=== PATIENT | female | born 1965 | race Caucasian/White ===

== ENCOUNTER 2022-04-07 01:46 | Emergency (ER) | payer OTHER, MEDICAID ==
[~2022-04-07] VITALS: Ht 162.6 cm; Wt 58.2 kg
[~2022-04-07 01:46] MED LIST: GLYB5TAB4 PO; METF500T PO
[2022-04-07] MEDS ORDERED: HYDROCODONE/ACETAMINOPHEN 5/325MG TABLET PO STA (03:52)
[2022-04-07 04:08] LABS: BASOPHILS % 0.7 % (0.0-2.0); HEMATOCRIT. 42.9 % (36.0-48.0); HEMOGLOBIN. 14.3 g/dL (12.0-16.0); LYMPHOCYTES % 23.7 % (20.0-50.0); MEAN CORPUSCULAR VOLUME 86.6 fL (81.0-99.0); MEAN PLATELET VOLUME 9.1 fl (7.4-10.4); NEUTROPHILS % 66.6 % (40.0-76.0); PLATELET 301 x1000/uL (130-400); RED BLOOD CELL COUNT 4.95 mill/uL (4.2-5.4); RED CELL DISTRIBUTION WIDTH 13.3 % (11.6-14.6)
[2022-04-07 04:14] LABS: CHLORIDE 103 mEq/L (98-107)
[2022-04-07] MEDS ORDERED: SODIUM CHLORIDE 0.9% 1,000 ML IV ONE (05:00)
[2022-04-07] MEDS ORDERED: ONDANSETRON HCL 4MG/2ML INJ IV NR ×2 (05:36→11:30)
[2022-04-07] MEDS ORDERED: IOHEXOL-300 100 ML BOTTLE ONE (05:52)
[2022-04-07 10:33] VITALS: BP 116/68
[2022-04-07] MEDS ORDERED: ONDANSETRON HCL 4MG/2ML INJ IV STA (10:55)
[2022-04-07] MEDS ORDERED: MORPHINE SULFATE 4 MG/ML CPJ (NOT FOR IM USE) IV STA (10:55)
[2022-04-07] MEDS ORDERED: MORPHINE SULFATE 4 MG/ML CPJ (NOT FOR IM USE) IV NR (11:30)
== END 2022-04-07 11:21 | disposition short-term general hospital (02) ==
LOC: ER 01:46
DX: K85.90 Acute pancreatitis without necrosis or infection, unspecified (principal); R10.9 Unspecified abdominal pain; K21.9 Gastro-esophageal reflux disease without esophagitis; E11.9 Type 2 diabetes mellitus without complications; F17.210 Nicotine dependence, cigarettes, uncomplicated; Z88.2 Allergy status to sulfonamides; Z20.822 Contact with and (suspected) exposure to COVID-19; Z90.721 Acquired absence of ovaries, unilateral; Z98.890 Other specified postprocedural states
CPT/HCPCS: 36415; 74177; 80053; 83690; 85025; 87426; 96361; 96374; 96375; 96376; 99285; C9803; J2270; J2405; J7030; Q9967

== ENCOUNTER 2022-04-15 17:13 | Emergency (ER) | payer MEDICAID ==
[~2022-04-15] VITALS: Ht 152.4 cm; Wt 58.0 kg
[2022-04-15 17:44] VITALS: BP 150/69
[2022-04-15] MEDS ORDERED: PANT40TA51 PO (17:46)
[2022-04-15] MEDS ORDERED: CYCL5TAB PO (17:46)
[2022-04-15] MEDS ORDERED: SUCR1TAB PO (17:46)
[2022-04-15] MEDS ORDERED: NORT10CA PO (17:46)
[2022-04-15] MEDS ORDERED: VISCOUS LIDOCAINE 2% 15 ML UDC MM STA (20:38)
[2022-04-15] MEDS ORDERED: MORPHINE SULFATE 10 MG/ML CPJ IM ONE (20:45)
[2022-04-15] MEDS ORDERED: ONDANSETRON 4MG ODT PO ONE (20:45)
[2022-04-15] MEDS ORDERED: MAGNESIUM/ALUMINUM HYDROXIDE/SIMETHICONE 30ML UDC PO ONE (20:45)
[2022-04-15] MEDS ORDERED: FAMOTIDINE 20MG TABLET PO ONE (20:45)
[2022-04-15 21:24] LABS: BASOPHILS % 0.6 % (0.0-2.0); HEMATOCRIT. 43.4 % (36.0-48.0); LYMPHOCYTES % 20.5 % (20.0-50.0); MEAN CORPUSCULAR HEMOGLOBIN 29.3 pg (28.0-32.0); MEAN CORPUSCULAR VOLUME 84.7 fL (81.0-99.0); MEAN PLATELET VOLUME 9.4 fl (7.4-10.4); MONOCYTES % 5.6 % (2.0-8.0); NEUTROPHILS % 71.3 % (40.0-76.0); PLATELET 367 x1000/uL (130-400); RED BLOOD CELL COUNT 5.13 mill/uL (4.2-5.4); RED CELL DISTRIBUTION WIDTH 13.3 % (11.6-14.6)
[2022-04-15 21:33] LABS: CHLORIDE 100 mEq/L (98-107)
[2022-04-15] MEDS ORDERED: MAG-55 MT (23:12)
[2022-04-15] MEDS ORDERED: FAMO40TA70 MT (23:12)
== END 2022-04-16 00:24 | disposition home or self-care (01) ==
LOC: ER 17:13
DX: K21.9 Gastro-esophageal reflux disease without esophagitis (principal); E11.9 Type 2 diabetes mellitus without complications; M54.30 Sciatica, unspecified side; Z98.890 Other specified postprocedural states; Z88.2 Allergy status to sulfonamides
CPT/HCPCS: 36415; 80053; 83690; 85025; 93005; 96372; 99284; J2270; Q0162